=== PATIENT | male | born 1925 | race Caucasian/White ===

== ENCOUNTER 2016-12-23 11:41 | Observation (INO) | payer OTHER ==
[~2016-12-23] VITALS: Ht 167.6 cm; Wt 52.2 kg
[2016-12-23 12:52] LABS: Basophils # (auto) 0.1 uL; Basophils % (auto) 0.7 % (0.0-2.0); Eosinophils # (auto) 0.2 uL; Eosinophils % (auto) 3.1 % (0.0-7.0); Hematocrit 39.3 % (41.0-53.0); Hemoglobin 13.1 g/dL (13.5-17.5); Lymphocytes # (auto) 2.8 uL; Mean Corpuscular Hgb Conc. 33.2 g/dL (32.0-36.0); Mean Corpuscular Volume 90.5 fL (80.0-100.0); Mean Platelet Volume 9.5 fL (7.4-10.4); Monocytes # (auto) 0.6 uL; Monocytes % (auto) 8.4 % (0.0-12.0); Neutrophils # (auto) 3.7 uL; Neutrophils % (auto) 49.8 % (37.0-80.0); Platelet Count (auto) 271 10^3/uL (140-450); Red Cell Distribution Width 13.8 % (11.6-16.0); White Blood Cell 7.3 10^3/uL (4.4-10.8)
[2016-12-23 13:19] LABS: Bilirubin, Total 0.4 mg/dL (0.2-1.0); Calcium 8.2 mg/dL (8.5-10.1); Potassium 3.5 mmol/L (3.5-5.1); Total Protein 7.2 g/dL (6.4-8.2)
[2016-12-23] MEDS ORDERED: POTA1TAB4 PO (15:34)
[2016-12-23] MEDS ORDERED: [UNRECOGNIZED DRUG - CODE] PO (15:34)
[2016-12-23] MEDS ORDERED: PANT40T PO (15:34)
[2016-12-23] MEDS ORDERED: SIMV-8 PO (15:34)
[2016-12-23] MEDS ORDERED: AMLO2.5T PO (15:34)
[2016-12-23] MEDS ORDERED: LATA0.0015 (15:34)
[2016-12-23] MEDS ORDERED: ASPirin-EC 81 mg tab PO ONE (17:30)
[2016-12-23] MEDS ORDERED: cloNIDine HCL 0.1 MG TAB PO ONE ×2 (17:30→22:30)
[2016-12-23 17:39] LABS: Urine Bilirubin Negative (Negative); Urine Blood Negative /uL (Negative); Urine Color Yellow (Yellow); Urine Glucose Normal (Normal); Urine Ketone Negative (Negative); Urine Nitrite Negative (Negative); Urine RBC 1 /hpf (0 - 3); Urine Squamous Epithelial Cell FEW /hpf (<5); Urine Urobilinogen Normal (Negative)
[2016-12-23 22:19] VITALS: BP 177/92
[2016-12-23] MEDS ORDERED: cloNIDine HCL 0.1 MG TAB ONE (22:23)
== END 2016-12-23 22:34 | disposition short-term general hospital (02) | DRG 66 ==
LOC: ER 11:53 → OVERFLOW 12:21 → ER 22:34
PROVIDERS: ADMIT Family Medicine; ATTEND Family Medicine
DX: I63.9 Cerebral infarction, unspecified (principal); I10 Essential (primary) hypertension; K21.9 Gastro-esophageal reflux disease without esophagitis; D32.9 Benign neoplasm of meninges, unspecified; E78.5 Hyperlipidemia, unspecified; H40.9 Unspecified glaucoma; G46.7 Other lacunar syndromes; F17.210 Nicotine dependence, cigarettes, uncomplicated; Z86.39 Personal history of other endocrine, nutritional and metabolic disease; Z82.49 Family history of ischemic heart disease and other diseases of the circulatory system
CPT/HCPCS: 36415; 70450; 71010; 80053; 81001; 83735; 84484; 85025; 93005; 99291; G0378

== ENCOUNTER 2017-01-24 18:38 | Emergency (ER) | payer OTHER ==
[~2017-01-24] VITALS: Ht 182.9 cm; Wt 81.6 kg
[~2017-01-24 18:38] MED LIST: AMLO2.5T PO; LATA0.0015; PANT40T PO; POTA1TAB4 PO; SIMV-8 PO; [UNRECOGNIZED DRUG - CODE] PO
[2017-01-24 19:03] LABS: DEFINITIVE VIEW TRANSMISSION; Hematocrit 42.7 % (41.0-53.0); Hemoglobin 14.3 g/dL (13.5-17.5); Mean Corpuscular Hgb Conc. 33.5 g/dL (32.0-36.0); Monocytes # (auto) 0.8 uL
[2017-01-24 19:08] LABS: Basophils # (auto) 0.3 uL; Basophils % (auto) 2.4 % (0.0-2.0); Eosinophils # (auto) 0 uL; Eosinophils % (auto) 0.1 % (0.0-7.0); Lymphocytes # (auto) 2.6 uL; Lymphocytes % (auto) 17.9 % (10.0-50.0); Mean Corpuscular Hemoglobin 30.7 pg (28.0-32.0); Mean Corpuscular Volume 91.8 fL (80.0-100.0); Mean Platelet Volume 9.9 fL (7.4-10.4); Monocytes % (auto) 5.4 % (0.0-12.0); Neutrophils # (auto) 10.6 uL; Neutrophils % (auto) 74.2 % (37.0-80.0); Platelet Count (auto) 346 10^3/uL (140-450); Red Cell Distribution Width 13.6 % (11.6-16.0); SUSPECT VIEW TRANSMISSION; White Blood Cell 14.3 10^3/uL (4.4-10.8)
[2017-01-24] MEDS ORDERED: PANTOPRAZOLE SODIUM 40 MG/10 ML VIAL IV ONE (19:15)
[2017-01-24] MEDS ORDERED: SODIUM CHLORIDE 0.9% 1,000 ML IV ONE (19:15)
[2017-01-24 19:19] LABS: INR 1.07 (0.9-1.15); Partial Thromboplastin Time 27.9 sec (22.64-33.71); Prothrombin Time 11.7 sec (9.37-12.3)
[2017-01-24 19:32] LABS: Albumin 3.3 g/dL (3.4-5.0); BUN/Creatinine Ratio 24.3; Bilirubin, Total 0.8 mg/dL (0.2-1.0); Calcium 9.1 mg/dL (8.5-10.1); Potassium 4.1 mmol/L (3.5-5.1); Total Protein 8.1 g/dL (6.4-8.2)
[2017-01-24] MEDS ORDERED: ONDANSETRON HCL 4 MG/2 ML VIAL IV ONE (23:00)
[2017-01-25 01:08] VITALS: BP 135/87
== END 2017-01-25 01:42 | disposition short-term general hospital (02) ==
LOC: ER 18:38 → EDBD 18:38 → ER 01-25 01:42
DX: K92.2 Gastrointestinal hemorrhage, unspecified (principal); K44.9 Diaphragmatic hernia without obstruction or gangrene; K21.9 Gastro-esophageal reflux disease without esophagitis; I10 Essential (primary) hypertension; Z86.73 Personal history of transient ischemic attack (TIA), and cerebral infarction without residual deficits; E78.5 Hyperlipidemia, unspecified; E07.9 Disorder of thyroid, unspecified; F17.210 Nicotine dependence, cigarettes, uncomplicated; Z79.899 Other long term (current) drug therapy
CPT/HCPCS: 36415; 71010; 80053; 85025; 85610; 85730; 86850; 86900; 86901; 94761; 96361; 96374; 96375; 99285; C9113; J2405; J7030